=== PATIENT | male | born 1985 | race African-American/Black ===

== ENCOUNTER 2022-07-22 23:04 | Emergency (ER) | payer BC, SELFPAY ==
[2022-07-22 23:06] VITALS: BP 140/104; PULSE 103; RESP 18; TEMP 35.6; BMI 28.0
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
[2022-07-23 01:11] VITALS: BP 138/88; PULSE 85; RESP 16; O2SAT 96
== END 2022-07-23 01:12 | disposition home or self-care (01) ==
PROVIDERS: Emergency Provider Emergency Medicine; Visit Provider Emergency Medicine
DX: M20.021 Boutonniere deformity of right finger(s) (principal); Z87.891 Personal history of nicotine dependence; Z48.02 Encounter for removal of sutures; I10 Essential (primary) hypertension
CPT/HCPCS: 99283

== ENCOUNTER 2022-07-27 08:06 | Emergency (ER) | payer BC, SELFPAY ==
[2022-07-27 08:07] VITALS: BP 132/100; PULSE 94; RESP 18; TEMP 35.5; O2SAT 100; BMI 29.1
--- NOTE | 2022-07-27 08:42 | RAD_ITS ---
INDICATION: pain, trauma EXAMINATION/TECHNIQUE: X-RAY - XR Mandible Complete Min 4 Views COMPARISON: None. FINDINGS: SOFT TISSUES: No soft tissue swelling or gas. No radiopaque foreign body. BONES/TMJs: No fracture or subluxation. No sclerotic or destructive changes observed. DENTITION: No acute abnormality. RAD/Mandible Min 4 Views IMPRESSION: No no evidence of acute fracture or dislocation. If symptoms persist, CT scan of the facial bones might be further value. Electronically Signed: Primitivo Beaulieu MD at 9:31 EST ,
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
[2022-07-27] MEDS: Acetaminophen 325 MG Tablet 650 MG PO (09:04)
--- NOTE | 2022-07-27 09:36 | ED.RN ---
PT WALKED OUT OF DEPT AT 0922 WITHOUT SPEAKING TO STAFF. PER SECURITY PATIENT LEFT THE PROPERTY WITHOUT INCIDENT
== END 2022-07-27 09:22 | disposition left against medical advice (07) ==
PROVIDERS: Emergency Provider Emergency Medicine; Visit Provider Emergency Medicine
DX: Z51.89 Encounter for other specified aftercare (principal); K08.89 Other specified disorders of teeth and supporting structures; Z87.891 Personal history of nicotine dependence; I10 Essential (primary) hypertension; M20.021 Boutonniere deformity of right finger(s)
CPT/HCPCS: 70110; 99282

== ENCOUNTER 2022-07-29 18:57 | Emergency (ER) | payer BC, SELFPAY ==
[2022-07-29 18:58] VITALS: BP 150/101; PULSE 119; RESP 12; TEMP 36.7; O2SAT 98; BMI 29.1
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
[2022-07-29] MEDS: Ziprasidone IM 20 MG/ML VIAL IM (20:04)
[2022-07-29 20:30] LABS: Amphetamine Urine VISTA NEGATIVE (<1000 ng/mL); Barbiturate Urine VISTA NEGATIVE (< 200 ng/mL); Benzodiazepine Urine VISTA NEGATIVE (< 200 ng/mL); Cocaine Urine VISTA NEGATIVE (< 300 ng/mL); Ecstacy Urine VISTA NEGATIVE (< 500 ng/mL); Methadone Urine VISTA NEGATIVE (< 300 ng/mL); PCP Urine VISTA NEGATIVE (< 25 ng/mL); THC Urine VISTA POSITIVE (< 50 ng/mL); Vista UDS pH Range 7
[2022-07-29 21:28] LABS: Absolute Lymphocyte Count 1.53 X10^3/uL (0.83-4.51); Absolute Neutrophil Count 4.4 X10^3/uL (2.0-7.7); Basophil# 0.02 X10^3/uL; Basophil% 0.3 % (0-1); Eosinophil# 0.04 X10^3/uL; Eosinophils% 0.6 % (0-5); Hematocrit 38.9 % (40-54); Hemoglobin 12.4 g/dL (13.0-16.5); Lymphocyte # 1.53 X10^3/ul (0.83-4.51); Lymphocyte % 24.4 % (19-41); Mean Corp Hgb Conc 31.9 g/dL (32-36); Mean Corpuscular Hgb 23.3 pg (27.0-32.0); Mean Corpuscular Volume 73.1 fL (80-94); Mean Platelet Vol. 9.2 fl (6.2-12.0); Monocyte# 0.26 X10^3/uL; Monocyte% 4.1 % (0-10); NRBC Flagged by Analyzer 0 % (0-5); Neutrophil # 4.41 X10^3/uL (2.7-7.7); Neutrophil % 70.3 % (47-70); Platelet Count 272 K/mm3 (150-450); RBC Distribution Width CV 14.6 % (11.6-14.6); RBC Distribution Width SD 38.1 fl (35.1-43.9); Red Blood Count 5.32 M/mm3 (4.6-6.2); White Blood Count 6.3 K/mm3 (4.4-11.0)
[2022-07-29 21:46] LABS: Alcohol, Blood (Medical)-Serum < 3.0 mg/dL
[2022-07-29 21:47] LABS: Anion Gap 7 (5-15); BUN 16 mg/dL (7-18); BUN/Creat Ratio 13.1 RATIO (10-20); Calcium,Total 9.3 mg/dL (8.5-10.1); Chloride 114 mmol/L (98-107); Creatinine, Serum 1.22 mg/dL (0.70-1.30); EST Glomerular Filtration Rate 70 mL/min (>60); Est Glom Filt Rate - Afr Amer 85 mL/min (>60); Estimated Creatinine Clearance 86.58 ml/min; Glucose 140 mg/dL (74-106); Potassium 4.1 mmol/L (3.5-5.1); Sodium Level 144 mmol/L (136-145)
--- NOTE | 2022-07-29 22:09 | NURSING ---
FAXED PAPERWORK TO [facility] FOR EVALUATION.
[2022-07-29 23:51] VITALS: BP 120/45; PULSE 66; RESP 15; TEMP 36.4; O2SAT 99
[2022-07-30] VITALS (8 sets, daily range): BP systolic 134–138; BP diastolic 60–98; PULSE 71–79; RESP 16–20; O2SAT 98–100
[2022-07-30] MEDS: Ibuprofen 600 MG Tablet PO (01:16)
--- NOTE | 2022-07-30 02:30 | EKG12_ITS ---
Test Reason : MHC Blood Pressure : / mmHG Vent. Rate : 074 BPM Atrial Rate : 074 BPM P-R Int : 142 ms QRS Dur : 092 ms QT Int : 388 ms P-R-T Axes : 059 -33 033 degrees QTc Int : 430 ms Normal sinus rhythm with sinus arrhythmia Left axis deviation Abnormal ECG Confirmed by DAMON SUTHERLAND, DELORIS ([id number]), design editor BELA NGUYEN ([id number]) on 08/01/2022 9:24:02 AM Referred By: TODD Confirmed By:DELORIS JOSE MD
--- NOTE | 2022-07-30 03:56 | NURSING ---
PER CRISIS REFERRED TO GENERATIONS
--- NOTE | 2022-07-30 08:40 | NURSING ---
BRODIE, CRISIS, CALLED. VERIFIED PATIENT STILL NEEDED PLACEMENT
--- NOTE | 2022-07-30 09:20 | ED.RN ---
Addendum entered by Riana cMlean 07/30/22 09:52: THIS IS NOT APPLICABLE TO THIS PT. Original Note: PATIENT COMPLAINS OF UNCONTROLLED PAIN UNTIL SHE CAN GET TO HER [facility] APPOINTMENT. PATIENT'S BOYFRIEND AT BEDSIDE.
--- NOTE | 2022-07-30 09:51 | ED.RN ---
REFERRED TO GENERATIONS AFTER D/C AND [place].
--- NOTE | 2022-07-30 09:55 | NURSING ---
CALLED CRISIS. TALKED TO BRODIE. PATIENT ALSO REFERRED TO [facility]AL[facility]
--- NOTE | 2022-07-30 11:26 | ED.RN ---
PATIENT REFUSED LUNCH PROVIDED.
--- NOTE | 2022-07-30 12:01 | NURSING ---
CALLED [facility], ETA IS 60 MIN
== END 2022-07-30 12:58 ==
PROVIDERS: Emergency Provider Emergency Medicine; Visit Provider Emergency Medicine
DX: F23 Brief psychotic disorder (principal); F31.9 Bipolar disorder, unspecified; R45.1 Restlessness and agitation; M20.021 Boutonniere deformity of right finger(s); D64.9 Anemia, unspecified; I10 Essential (primary) hypertension; Z87.891 Personal history of nicotine dependence
CPT/HCPCS: 80048; 80307; 82077; 85025; 87811; 93005; 96372; 99283

== ENCOUNTER 2022-08-08 17:57 | Emergency (ER) | payer BC, SELFPAY ==
[2022-08-08 17:59] VITALS: BP 131/79; PULSE 151; RESP 19; TEMP 36.7; O2SAT 98; BMI 28.2
--- NOTE | 2022-08-08 18:17 | EKG12_ITS ---
Test Reason : PSYCH Blood Pressure : / mmHG Vent. Rate : 080 BPM Atrial Rate : 080 BPM P-R Int : 146 ms QRS Dur : 094 ms QT Int : 376 ms P-R-T Axes : 059 -33 034 degrees QTc Int : 433 ms Normal sinus rhythm with sinus arrhythmia Left axis deviation Abnormal ECG Confirmed by DEBORAH SUTHERLAND, MARIA DEL CARMEN ([id number]), general expeditor BELA NGUYEN ([id number]) on 08/09/2022 10:55:08 AM Referred By: Confirmed By:MARIA DEL CARMEN CABRERA MD
--- NOTE | 2022-08-08 18:21 | EDS_ITS ---
HPI <JEANNINE Ramirez - Last Filed: 08/08/22 21:07> History of Present Illness Chief Complaint: Mental Health Narrative Narrative: 37-year-old male with history of schizophrenia, bipolar, PTSD presents to the emergency department for flight of ideas, aggressive behavior, not taking his Depakote. Patient states that he was denied Depakote at some facility, this upset him and now he is here. Patient is difficult to obtain any information from, he has flight of ideas, he makes multiple remarks about hurting himself and others. He did have an outburst once arriving by smacking his head against the glass hard of the door. Patient states that he wants to kill other people as well as himself. When asked about drug abuse he says no. The only medication that he states he usually takes his Depakote. PFSH <JEANNINE Ramirez - Last Filed: 08/08/22 21:07> PFS Medical History Alcohol abuse Anxiety Bipolar disorder Depression Former smoker Hypertension Migraines Schizophrenia Substance abuse Allergy/AdvReac Type Severity Reaction Status Date / Time shrimp Allergy Anaphylaxis Verified 07/29/22 19:01 Social History Smoking Status: Former smoker ROS <JEANNINE Ramirez - Last Filed: 08/08/22 21:07> ROS ED ROS Narrative Constitutional: Negative for fever, chills, weight loss, weakness Eyes: Negative for vision loss, vision change, double vision ENT: Negative for any sore throat, ear pain, congestion Cardiovascular: Negative for any chest pain, tightness, palpitations Respiratory: Negative for any cough, sputum production, hemoptysis, dyspnea, dyspnea on exertion, orthopnea Gastrointestinal: Negative for any abdominal pain, nausea, vomiting, diarrhea, constipation, blood in stool, blood in vomit : Negative for any urinary frequency, dysuria, retention, blood in urine Muscle skeletal: Negative for any muscle joint pain, stiffness, myalgias, arthralgias, neck pain, back pain Neurological: Negative for any headache, syncope, numbness or tingling, dizziness Skin: Negative for any rashes, lumps, itching, abrasions, lacerations Psychiatric: Patient states that he is having flight of ideas, he is suicidal, homicidal. He is very angry that he is not receiving his Depakote for free. He is unsure what is really happening. He is unable to stay on task. Hematologic: Negative for any easy bruising, excessive bruising, easy bleeding Allergies: Negative for any eczema, hives, rash EXAM <Gary Avery NP-C - Last Filed: 08/08/22 21:07> Physical Exam Narrative Exam Narrative: Vital signs reviewed. Patient during initial examination became very aggressive, he threatened to kill me, as well as to kill himself. At this time is unable to do a full physical examination. I spoke with the nursing staff as well as the security staff. Patient was placed in four-point restraints for his own safety as well as the safety of the staff. After patient was in restraints, was able doing more physical exam. Patient still acting appropriate. Still threatening myself. HEET: Head normocephalic atraumatic, TMs clear bilaterally. Posterior pharynx is clear, moist mucous membranes. Nares clear bilaterally. Neck: Supple with no lymphadenopathy or tenderness. No signs of meningismus, negative jolt sign. Cardiac: Tachycardic rate no murmurs gallops or rubs, equal peripheral pulses bilaterally. Respiratory: Lungs clear to auscultation bilaterally. No chest tenderness. Abdomen: Soft, nontender, nondistended. No abdominal bruit or pulsatile masses. No hepatosplenomegaly Extremities: No peripheral edema, no signs of gross trauma or deformity. Active full range of motion of all extremities. Neuro: Cranial nerves II through XII intact, no focal neurological deficits. Skin: Clean dry and intact with no rash, purpura, petechiae, vesicles or pustules. Backs/flank: No CVA tenderness, no midline spinal tenderness, no deformity. Psych: Patient appears to be in a psychosis, patient is unable to think clearly, he is unable to answer basic questions. Const Vital Signs: 08/08/22 17:59 08/08/22 18:58 08/08/22 19:00 Temperature 98.1 F Temperature Source Temporal Pulse Rate 151 H 90 90 Respiratory Rate 19 H 16 16 Blood Pressure 131/79 H 105/58 L Blood Pressure Mean 96 73 Pulse Ox 98 99 99 Oxygen Delivery Method Room Air Room Air Room Air 08/08/22 21:23 Temperature Temperature Source Pulse Rate 78 Respiratory Rate 20 H Blood Pressure Blood Pressure Mean Pulse Ox 95 Oxygen Delivery Method Positive unkempt General Appearance ED: unkempt Psych Appearance: unkempt <Dr. Dalton Bauman, DO - Last Filed: 08/08/22 21:31> Physical Exam Const Vital Signs: 08/08/22 17:59 08/08/22 18:58 08/08/22 19:00 Temperature 98.1 F Temperature Source Temporal Pulse Rate 151 H 90 90 Respiratory Rate 19 H 16 16 Blood Pressure 131/79 H 105/58 L Blood Pressure Mean 96 73 Pulse Ox 98 99 99 Oxygen Delivery Method Room Air Room Air Room Air 08/08/22 21:23 Temperature Temperature Source Pulse Rate 78 Respiratory Rate 20 H Blood Pressure Blood Pressure Mean Pulse Ox 95 Oxygen Delivery Method MDM <JEANNINE Ramirez - Last Filed: 08/08/22 21:07> MDM Lab Data Labs: Laboratory Results - last 24 hr 08/08/22 08/08/22 08/08/22 18:32 18:32 18:55 WBC 7.3 RBC 5.79 Hgb 13.5 Hct 41.9 MCV 72.4 L MCH 23.3 L MCHC 32.2 RDW Std Deviation 36.1 RDW Coeff of Mick 14.3 Plt Count 316 MPV 9.5 Immature Gran % (Auto) 0.500 Neut % (Auto) 77.4 H Lymph % (Auto) 12.9 L [place] % (Auto) 7.9 Eos % (Auto) 1.0 Baso % (Auto) 0.3 Absolute Neuts (auto) 5.7 Absolute Lymphs (auto) 0.94 Nucleated RBC % 0 Sodium Potassium Chloride Carbon Dioxide Anion Gap BUN Creatinine Estim Creat Clear Calc Est GFR (MDRD) Af Amer Est GFR (MDRD) Non-Af BUN/Creatinine Ratio Glucose Calcium Urine Color Yellow Urine Clarity Clear Urine pH 7.0 Ur Specific Almond 1.010 Urine Protein 30 H Urine Glucose (UA) Normal Urine Ketones 50 H Urine Occult Blood 10 H Urine Nitrite Negative Urine Bilirubin 1 H Urine Urobilinogen 4 H Ur Leukocyte Esterase 25 H Urine RBC 0 SEEN Urine WBC 0 SEEN Ur Squamous Epith Cells 0 SEEN Urine Bacteria 0 SEEN Urine Mucus 0 SEEN Urine Opiates Screen NEGATIVE Urine Methadone Screen NEGATIVE Ur Barbiturates Screen NEGATIVE Valproic Acid Ur Phencyclidine Scrn NEGATIVE Ur Amphetamines Screen NEGATIVE MDMA (Ecstasy) Screen NEGATIVE U Benzodiazepines Scrn NEGATIVE Urine Cocaine Screen NEGATIVE U Cannabinoids Screen POSITIVE H Ur Drug Screen Comment Ethyl Alcohol 08/08/22 08/08/22 08/08/22 18:55 18:55 18:55 WBC RBC Hgb Hct MCV MCH MCHC RDW Std Deviation RDW Coeff of Mick Plt Count MPV Immature Gran % (Auto) Neut % (Auto) Lymph % (Auto) [place] % (Auto) Eos % (Auto) Baso % (Auto) Absolute Neuts (auto) Absolute Lymphs (auto) Nucleated RBC % Sodium 139 Potassium 3.7 Chloride 107 Carbon Dioxide 24.0 Anion Gap 8 BUN 16 Creatinine 1.25 Estim Creat Clear Calc 87.08 Est GFR (MDRD) Af Amer 83 Est GFR (MDRD) Non-Af 68 BUN/Creatinine Ratio 12.8 Glucose 94 Calcium 9.4 Urine Color Urine Clarity Urine pH Ur Specific [place]mond Urine Protein Urine Glucose (UA) Urine Ketones Urine Occult Blood Urine Nitrite Urine Bilirubin Urine Urobilinogen Ur Leukocyte Esterase Urine RBC Urine WBC Ur Squamous Epith Cells Urine Bacteria Urine Mucus Urine Opiates Screen Urine Methadone Screen Ur Barbiturates Screen Valproic Acid 10 L Ur Phencyclidine Scrn Ur Amphetamines Screen MDMA (Ecstasy) Screen U Benzodiazepines Scrn Urine Cocaine Screen U Cannabinoids Screen Ur Drug Screen Comment Ethyl Alcohol < 3.0 EKG Normal sinus rhythm: Attestation: I personally reviewed and interpreted this EKG as follows: Interpretation: Sinus Rhythm Comments: Normal sinus rhythm with sinus arrhythmia, rate is 80 bpm, CA 146 ms, QRS duration 94 ms, no acute ST elevation, no acute infarct noted. Management Discussion w/another healthcare provider: fruit and vegetable factory worker/Case management Treatment and Re-Evaluation :: Patient arrives with complaints of not taking his Depakote, feeling as if he is out of control he is suicidal, homicidal. He did have a similar admission July 29, 2022. Patient upon initial examination threatened the life of myself as well as other staff members, he also states that he was going to kill himself. Patient also started banging his head against the glass of the door and he had to be put in four-point restraints. Patient was also given IM Geodon. Patient did receive some basic laboratory values patient's CBC was unremarkable, chemistries were unremarkable. Patient's urine drug screen was positive for cannabis which is similar to his July 29, 2022 visit. Patient EKG was unremarkable. After the Geodon, patient was sleeping. The patient is much more calm. I was still unable to reassess him secondary to his flight of ideas. Patient was less aggressive towards staff. He does admit that he needs help. He did apologize for his earlier outburst. Patient is now out of all restraints. Patient sleeping comfortably. Patient is sleepy at this time and unable to be assessed by crisis. However patient will be evaluated crisis when he wakes up, and is acting more appropriate. <Dr. Dalton Bauman, DO - Last Filed: 08/08/22 21:31> [facility] MDM Narrative Medical decision making narrative: This patient was seen with a PA/DRAIN TILE PRESS OPERATOR Individually assessed they patient including history and physical. I have reviewed everything on the chart that is available and agree with the documentation provided by the PA/DRAIN TILE PRESS OPERATOR including discussion about the assessment, treatment plan, discussion, and return precautions. Patient seen and evaluated. Patient reports not taking Depakote now feeling suicidal and homicidal. He threatened to the PA and stated that he would kill him. He started beating his head on the door. Patient had to be put in restraints after given Geodon. fruit and vegetable factory worker did state that she did not feel comfortable seeing him as she had previously seen him and he threatened her life and her children's lives. She recommended crisis. Patient did have clearance lab work which is normal. An EKG which shows a sinus rhythm with a ventricular to 80 bpm outside of ischemic change or dysrhythmia. He is medically clear for crisis at this time. Given that he is suicidal and homicidal and off his medications I think he will need to be placed. He has been removed from restraints is now sleeping. Patient signed out to incoming ED physician for monitoring. Impression: 1. Acute psychosis 2. Suicidal ideation 3. Homicidal ideation Lab Data Labs: Laboratory Results - last 24 hr 08/08/22 08/08/22 08/08/22 18:32 18:32 18:55 WBC 7.3 RBC 5.79 Hgb 13.5 Hct 41.9 MCV 72.4 L MCH 23.3 L MCHC 32.2 RDW Std Deviation 36.1 RDW Coeff of Mick 14.3 Plt Count 316 MPV 9.5 Immature Gran % (Auto) 0.500 Neut % (Auto) 77.4 H Lymph % (Auto) 12.9 L [place] % (Auto) 7.9 Eos % (Auto) 1.0 Baso % (Auto) 0.3 Absolute Neuts (auto) 5.7 Absolute Lymphs (auto) 0.94 Nucleated RBC % 0 Sodium Potassium Chloride Carbon Dioxide Anion Gap BUN Creatinine Estim Creat Clear Calc Est GFR (MDRD) Af Amer Est GFR (MDRD) Non-Af BUN/Creatinine Ratio Glucose Calcium Urine Color Yellow Urine Clarity Clear Urine pH 7.0 Ur Specific [place] 1.010 Urine Protein 30 H Urine Glucose (UA) Normal Urine Ketones 50 H Urine Occult Blood 10 H Urine Nitrite Negative Urine Bilirubin 1 H Urine Urobilinogen 4 H Ur Leukocyte Esterase 25 H Urine RBC 0 SEEN Urine WBC 0 SEEN Ur Squamous Epith Cells 0 SEEN Urine Bacteria 0 SEEN Urine Mucus 0 SEEN Urine Opiates Screen NEGATIVE Urine Methadone Screen NEGATIVE Ur Barbiturates Screen NEGATIVE Valproic Acid Ur Phencyclidine Scrn NEGATIVE Ur Amphetamines Screen NEGATIVE MDMA (Ecstasy) Screen NEGATIVE U Benzodiazepines Scrn NEGATIVE Urine Cocaine Screen NEGATIVE U Cannabinoids Screen POSITIVE H Ur Drug Screen Comment Ethyl Alcohol 08/08/22 08/08/22 08/08/22 18:55 18:55 18:55 WBC RBC Hgb Hct MCV MCH MCHC RDW Std Deviation RDW Coeff of Mick Plt Count MPV Immature Gran % (Auto) Neut % (Auto) Lymph % (Auto) [place] % (Auto) Eos % (Auto) Baso % (Auto) Absolute Neuts (auto) Absolute Lymphs (auto) Nucleated RBC % Sodium 139 Potassium 3.7 Chloride 107 Carbon Dioxide 24.0 Anion Gap 8 BUN 16 Creatinine 1.25 Estim Creat Clear Calc 87.08 Est GFR (MDRD) Af Amer 83 Est GFR (MDRD) Non-Af 68 BUN/Creatinine Ratio 12.8 Glucose 94 Calcium 9.4 Urine Color Urine Clarity Urine pH Ur Specific [place] Urine Protein Urine Glucose (UA) Urine Ketones Urine Occult Blood Urine Nitrite Urine Bilirubin Urine Urobilinogen Ur Leukocyte Esterase Urine RBC Urine WBC Ur Squamous Epith Cells Urine Bacteria Urine Mucus Urine Opiates Screen Urine Methadone Screen Ur Barbiturates Screen Valproic Acid 10 L Ur Phencyclidine Scrn Ur Amphetamines Screen MDMA (Ecstasy) Screen U Benzodiazepines Scrn Urine Cocaine Screen U Cannabinoids Screen Ur Drug Screen Comment Ethyl Alcohol < 3.0 Discharge Plan Triage Chief Complaint: Mental Health ED Midlevel Provider: Gary Avery ED Provider: Dalton Bauman Dx/Rx/DC Orders Clinical Impression: Acute exacerbation of psychosis, Family history of schizophrenia, Suicidal ideation, Homicidal ideation, Noncompliance with medication regimen Primary Care Provider: Care Physician,No Primary Referrals: Care Physician,No Primary [Primary Care Provider] -
[2022-08-08] MEDS: Ziprasidone IM 20 MG/ML VIAL IM (18:26)
[2022-08-08 18:44] LABS: Bacteria 0 SEEN /hpf (None Seen); Mucous, Urine 0 SEEN /hpf (<or=2+); Red Blood Cells-Urine 0 SEEN /hpf (0-5); Squamous Epithelial Cells - UA 0 SEEN /hpf (0-5); White Blood Cells 0 SEEN /hpf (0-5)
[2022-08-08 18:58] VITALS: BP 105/58; PULSE 90; RESP 16; O2SAT 99
[2022-08-08 19:00] VITALS: PULSE 90; RESP 16; O2SAT 99
[2022-08-08 19:04] LABS: Color, Urine Yellow (Yellow); Glucose, Dipstick Normal (Normal); Ketone-Dipstick 50 mg/dl (Negative); Leukocyte Esterase-Dipstick 25 /ul (Negative); Nitrite-Dipstick Negative (Negative); Occult Blood-Urine 10 /ul (Negative); Protein-Dipstick 30 mg/dl (Negative); Urine Clarity Clear (Clear); Urine Urobilinogen 4 mg/dl (Normal)
[2022-08-08 19:06] LABS: Absolute Lymphocyte Count 0.94 X10^3/uL (0.83-4.51); Absolute Neutrophil Count 5.7 X10^3/uL (2.0-7.7); Basophil# 0.02 X10^3/uL; Basophil% 0.3 % (0-1); Eosinophil# 0.07 X10^3/uL; Hematocrit 41.9 % (40-54); Hemoglobin 13.5 g/dL (13.0-16.5); Lymphocyte # 0.94 X10^3/ul (0.83-4.51); Lymphocyte % 12.9 % (19-41); Mean Corp Hgb Conc 32.2 g/dL (32-36); Mean Corpuscular Hgb 23.3 pg (27.0-32.0); Mean Corpuscular Volume 72.4 fL (80-94); Mean Platelet Vol. 9.5 fl (6.2-12.0); Monocyte# 0.58 X10^3/uL; Monocyte% 7.9 % (0-10); NRBC Flagged by Analyzer 0 % (0-5); Neutrophil # 5.65 X10^3/uL (2.7-7.7); Neutrophil % 77.4 % (47-70); Platelet Count 316 K/mm3 (150-450); RBC Distribution Width CV 14.3 % (11.6-14.6); RBC Distribution Width SD 36.1 fl (35.1-43.9); Red Blood Count 5.79 M/mm3 (4.6-6.2); White Blood Count 7.3 K/mm3 (4.4-11.0)
[2022-08-08 19:08] LABS: Urine Bilirubin Dipstick 1 mg/dL (Negative)
[2022-08-08 19:11] LABS: Amphetamine Urine VISTA NEGATIVE (<1000 ng/mL); Barbiturate Urine VISTA NEGATIVE (< 200 ng/mL); Benzodiazepine Urine VISTA NEGATIVE (< 200 ng/mL); Cocaine Urine VISTA NEGATIVE (< 300 ng/mL); Ecstacy Urine VISTA NEGATIVE (< 500 ng/mL); Methadone Urine VISTA NEGATIVE (< 300 ng/mL); PCP Urine VISTA NEGATIVE (< 25 ng/mL); THC Urine VISTA POSITIVE (< 50 ng/mL); Vista UDS pH Range 7
[2022-08-08 19:20] LABS: Alcohol, Blood (Medical)-Serum < 3.0 mg/dL
[2022-08-08 19:23] LABS: Anion Gap 8 (5-15); BUN 16 mg/dL (7-18); BUN/Creat Ratio 12.8 RATIO (10-20); Calcium,Total 9.4 mg/dL (8.5-10.1); Chloride 107 mmol/L (98-107); Creatinine, Serum 1.25 mg/dL (0.70-1.30); EST Glomerular Filtration Rate 68 mL/min (>60); Est Glom Filt Rate - Afr Amer 83 mL/min (>60); Estimated Creatinine Clearance 87.08 ml/min; Glucose 94 mg/dL (74-106); Potassium 3.7 mmol/L (3.5-5.1); Sodium Level 139 mmol/L (136-145)
[2022-08-08 19:25] LABS: Valproic Acid (Depakene) Level 10 ug/mL (50-100)
--- NOTE | 2022-08-08 20:50 | NURSING ---
CALLED [facility] AT [id number]
[2022-08-08 21:23] VITALS: PULSE 78; RESP 20; O2SAT 95
[2022-08-08 22:04] VITALS: BP 109/68; PULSE 72; RESP 14; O2SAT 98
[2022-08-08 23:04] VITALS: PULSE 74; RESP 18; O2SAT 99
[2022-08-09] VITALS (11 sets, daily range): BP systolic 104–111; BP diastolic 58–69; PULSE 61–86; RESP 14–19; TEMP 36.6; O2SAT 100
--- NOTE | 2022-08-09 07:46 | ED.RN ---
PATIENT FILE FAXED TO [facility]
--- NOTE | 2022-08-09 07:50 | ED.RN ---
crisis calls into ed reports the television repair teachercall center consultant will be in to assess him around 0830.
== END 2022-08-09 15:24 ==
PROVIDERS: Nurse Practitioner; Emergency Provider Student in an Organized Health Care Education/Training Program; Visit Provider Student in an Organized Health Care Education/Training Program
DX: F23 Brief psychotic disorder (principal); F31.9 Bipolar disorder, unspecified; R45.851 Suicidal ideations; F43.10 Post-traumatic stress disorder, unspecified; R45.850 Homicidal ideations; Z87.891 Personal history of nicotine dependence; I10 Essential (primary) hypertension; Z91.14 Patient's other noncompliance with medication regimen
CPT/HCPCS: 80048; 80164; 80307; 81001; 82077; 85025; 87811; 93005; 96372; 99283